=== PATIENT | female | born 1970 | race Caucasian/White ===

== ENCOUNTER 2017-06-02 17:57 | Emergency (ER) | payer BC, OTHER ==
[~2017-06-02] VITALS: Ht 160 cm; Wt 86.2 kg
[~2017-06-02 17:57] MED LIST: CODE-54 PO; IBUP-1773 PO
--- OUTSIDE RECORDS SUMMARY | 2017-06-02 18:06 | XMS REPORT | Continuity of Care Document ---
Author Author [facility] Organization [facility] Address Unknown Phone Unavailable Allergies Medications Problems Procedures Results Encounters ACCT No. Visit Date/Time Discharge Status Pt. Type Provider Facility Loc./Unit Complaint [id number] 04/25/2014 07:00:00 2013 11:20:00 DIS Outpatient [id number] 04/21/2014 09:34:00 2013 23:59:59 CLS Outpatient
--- NOTE | 2017-06-02 18:34 | ED GU-Female ---
General Stated Complaint: HEAVY VAG BLEEDING Source: patient, RN/MD, other Exam Limitations: no limitations History of Present Illness Time seen by provider: 18:27 Initial Comments Patient presents to ER by private conveyance with a chief complaint that for the last week she's been having some spotting and at 3:30 this afternoon she started having a lot of quinonez of heavy vaginal bleeding, with clots. She had an ablation for heavy bleeding by Dr. Higginbotham in June 2016. She's not had any problems since then. She's also had some cramping abdominal pain starting this week off and on but never lasting for more than a few seconds. She's had no nausea and has not pain right now. She has no shortness of breath or chest pain. She says recently had ablations because her hemoglobin got down to 7 last year. She does not smoke drink or use recreational drugs. No other significant medical history. She's had 5 children. Allergies and Home Medications Allergies Coded Allergies: No Known Drug Allergies (Unverified , 04/21/14) Constitutional: No chills, No diaphoresis, No dizziness, No fever, No malaise EENTM: No ear pain, No eye pain Respiratory: No cough, No short of breath Cardiovascular: No chest pain, No palpitations, No syncope, No vascular heart diseas Gastrointestinal: abdominal pain, No constipation, No diarrhea, No melena, No nausea, No vomiting Genitourinary: denies burning, denies dysuria : No Musculoskeletal: No back pain, No joint pain, other (sciatic pain has been worse the last week especially right side.) Skin: No pruritus, No rash Psychiatric/Neurological: Denies Numbness, Denies Paresthesia Hematologic/Lymphatic: See HPI, Anemia (history of last year.), Denies Blood Clots, Denies Easy Bleeding, Denies Easy Bruising Past Feplexc-Jdygsh-Neeejb Hx Patient Social History Alcohol Use: Denies Use Recreational Drug Use: No Smoking Status: Never a Smoker Recent Foreign Travel: No Contact w/Someone Who Travel: No Reproductive System Hx Reproductive Disorders: Yes Physical Exam Vital Signs Vital Sign - Last 12Hours 06/02/17 18:15 Temp 97.4 Pulse 86 Resp 18 B/P (MAP) 148/89 Pulse Ox 97 Capillary Refill : General Appearance: WD/WN, no apparent distress HEENT: PERRL/EOMI, pharynx normal Neck: non-tender, normal inspection Cardiovascular: normal peripheral pulses, regular rate, rhythm, no edema, no murmur Respiratory: chest non-tender, lungs clear, normal breath sounds Gastrointestinal: normal bowel sounds, non tender, soft Genital/Rectal: normal genital exam, normal vaginal exam (scant amount of bloody secretions. Cervical os is closed with blood-tinged mucus. There is no pooling. The cervix is multiparous, nontender to motion and the uterus is approximately the size of a [place]. Ovaries nonpalpable. No masses palpated.), No blood at urethral meatus, No tenderness Pelvic: normal external exam, normal adnexa, no cerv. motion tender, no masses , vaginal bleeding (scant) Back: normal inspection, no CVA tenderness Extremities: normal range of motion, normal inspection, no pedal edema, normal capillary refill Neurologic/Psychiatric: alert, normal mood/affect, oriented x 3 Skin: normal color, warm/dry Progress/Results/Core Measures Results/Orders Lab Results Laboratory Tests Test 06/02/17 18:35 06/02/17 18:55 Range/Units White Blood Count 8.7 4.3-11.0 10^3/uL Red Blood Count 4.36 4.35-5.85 10^6/uL Hemoglobin 12.8 11.5-16.0 G/DL Hematocrit 37 35-52 % Mean Corpuscular Volume 85 80-99 FL Mean Corpuscular Hemoglobin 29 25-34 PG Mean Corpuscular Hemoglobin Concent 34 32-36 G/DL Red Cell Distribution Width 13.0 10.0-14.5 % Platelet Count 332 130-400 10^3/uL Mean Platelet Volume 9.1 7.4-10.4 FL Neutrophils (%) (Auto) 60 42-75 % Lymphocytes (%) (Auto) 30 12-44 % Monocytes (%) (Auto) 6 0-12 % Eosinophils (%) (Auto) 3 0-10 % Basophils (%) (Auto) 1 0-10 % Neutrophils # (Auto) 5.2 1.8-7.8 X 10^3 Lymphocytes # (Auto) 2.6 1.0-4.0 X 10^3 Monocytes # (Auto) 0.5 0.0-1.0 X 10^3 Eosinophils # (Auto) 0.3 0.0-0.3 10^3/uL Basophils # (Auto) 0.0 0.0-0.1 10^3/uL Sodium Level 137 135-145 MMOL/L Potassium Level 3.8 3.6-5.0 MMOL/L Chloride Level 104 98-107 MMOL/L Carbon Dioxide Level 24 21-32 MMOL/L Anion Gap 9 5-14 MMOL/L Blood Urea Nitrogen 12 7-18 MG/DL Creatinine 0.74 0.60-1.30 MG/DL Estimat Glomerular Filtration Rate > 60 BUN/Creatinine Ratio 16 Glucose Level 115 H 70-105 MG/DL Calcium Level 9.4 8.5-10.1 MG/DL Total Bilirubin 0.5 0.1-1.0 MG/DL Aspartate Amino Transf (AST/SGOT) 14 5-34 U/L Alanine Aminotransferase (ALT/SGPT) 18 0-55 U/L Alkaline Phosphatase 70 40-136 U/L Total Protein 7.5 6.4-8.2 GM/DL Albumin 4.2 3.2-4.5 GM/DL Urine Color YELLOW Urine Clarity CLEAR Urine pH 6 5-9 Urine Specific [place] 1.010 L 1.016-1.022 Urine Protein NEGATIVE NEGATIVE Urine Glucose (UA) NEGATIVE NEGATIVE Urine Ketones NEGATIVE NEGATIVE Urine Nitrite NEGATIVE NEGATIVE Urine Bilirubin NEGATIVE NEGATIVE Urine Urobilinogen NORMAL NORMAL MG/DL Urine Leukocyte Esterase NEGATIVE NEGATIVE Urine RBC (Auto) 5+ H NEGATIVE Urine RBC 2-5 H /HPF Urine WBC 0-2 /HPF Urine Squamous Epithelial Cells 10-25 H /HPF Urine Crystals NONE /LPF Urine Bacteria TRACE /HPF Urine Casts NONE /LPF Urine Mucus NEGATIVE /LPF Urine Culture Indicated NO Urine Test NEGATIVE NEGATIVE My Orders Orders - ISIDRO HENSON Cbc With Automated Diff (06/02/17 18:12) Comprehensive Metabolic Panel (06/02/17 18:12) Hcg,Qualitative Urine (06/02/17 18:12) Ua Culture If Indicated (06/02/17 18:12) Vital Signs/I&O Vital Sign - Last 12Hours 06/02/17 18:15 Temp 97.4 Pulse 86 Resp 18 B/P (MAP) 148/89 Pulse Ox 97 Progress Note : Time: 19:26 Progress Note Consistent with an AMI trophic hyperplasia. The hemoglobin is good and her examination does not reveal overt hemorrhage or tumor. We'll call the OB fur ironer and try and get her an appointment set up follow-up the next 1-2 weeks. Consults Consults : Consulting Physician: RUDDY WAN DO Consults Notes Discussed the case, physical findings and laboratory findings and she will notify her office to expect phone call from the patient tomorrow morning and they will get her set up. Departure Impression Impression: Primary Impression: Vaginal bleeding, abnormal Disposition: 01 HOME, SELF-CARE Condition: Stable Departure-Patient Inst. Decision time for Depature: 19:30 Referrals: TAMEKA RICE MD (PCP/Family) Primary Care Physician Patient Instructions: IRREGULAR VAGINAL BLEEDING Add. Discharge Instructions: If you begin have shortness of breath or chest pain return to the ER. Plan on following up with Dr. Wan by calling her clinic tomorrow morning at [phone]. She will instruct her clinic to be looking for your phone call and they will get to set up for an appointment. Copy Copies To 1: TAMEKA RICE MD Copies To 2: RUDDY WAN TITUS J Jun 02, 2017 18:34
[2017-06-02 18:42] LABS: BASOPHILS % (AUTO) 1 % (0-10); EOSINOPHILS # (AUTO) 0.3 10^3/uL (0.0-0.3); EOSINOPHILS % (AUTO) 3 % (0-10); LYMPHOCYTES # (AUTO) 2.6 X 10^3 (1.0-4.0); LYMPHOCYTES % (AUTO) 30 % (12-44); MEAN CORPUSCULAR HEMOGLOBIN 29 PG (25-34); MEAN CORPUSCULAR HGB CONC 34 G/DL (32-36); MEAN CORPUSCULAR VOLUME 85 FL (80-99); MEAN PLATELET VOLUME 9.1 FL (7.4-10.4); MONOCYTES # (AUTO) 0.5 X 10^3 (0.0-1.0); MONOCYTES % (AUTO) 6 % (0-12); NEUTROPHILS # (AUTO) 5.2 X 10^3 (1.8-7.8); NEUTROPHILS % (AUTO) 60 % (42-75); PLATELET COUNT 332 10^3/uL (130-400); RED BLOOD COUNT 4.36 10^6/uL (4.35-5.85); WHITE BLOOD COUNT 8.7 10^3/uL (4.3-11.0)
[2017-06-02 19:00] LABS: ALANINE AMINOTRANSFERASE 18 U/L (0-55); ALBUMIN 4.2 GM/DL (3.2-4.5); ANION GAP 9 MMOL/L (5-14); ASPARTATE AMINO TRANSFERASE 14 U/L (5-34); BILIRUBIN,TOTAL 0.5 MG/DL (0.1-1.0); BLOOD UREA NITROGEN 12 MG/DL (7-18); BUN/CREATININE RATIO 16; CALCIUM 9.4 MG/DL (8.5-10.1); CARBON DIOXIDE 24 MMOL/L (21-32); CHLORIDE 104 MMOL/L (98-107); CREATININE SERUM 0.74 MG/DL (0.60-1.30); GFR ESTIMATED > 60; GLUCOSE 115 MG/DL (70-105); POTASSIUM 3.8 MMOL/L (3.6-5.0); SODIUM 137 MMOL/L (135-145); TOTAL PROTEIN 7.5 GM/DL (6.4-8.2)
[2017-06-02 19:04] LABS: BILIRUBIN,URINE NEGATIVE (NEGATIVE); KETONES,URINE NEGATIVE (NEGATIVE); LEUKOCYTE ESTERASE ,URINE NEGATIVE (NEGATIVE); NITRITE,URINE NEGATIVE (NEGATIVE); PH,URINE 6 (5-9); PROTEIN,URINE NEGATIVE (NEGATIVE); UROBILINOGEN,URINE NORMAL (NORMAL)
[2017-06-02 19:13] LABS: WBC,URINE 0-2 /HPF
[2017-06-02 19:37] VITALS: BP 148/89
== END 2017-06-02 19:37 | disposition home or self-care (01) ==
LOC: EDUNIT# 17:57 → ER 17:59
DX: N93.9 Abnormal uterine and vaginal bleeding, unspecified (principal); Z87.42 Personal history of other diseases of the female genital tract
CPT/HCPCS: 36415; 80053; 81000; 84703; 85025